=== PATIENT | male | born 2000 ===

== ENCOUNTER 2020-08-31 23:40 | Emergency (ER) | payer SELFPAY ==
[~2020-08-31] VITALS: Ht 170.2 cm; Wt 117.9 kg
[2020-08-31 23:55] VITALS: BP 149/64
[2020-09-01] MEDS ORDERED: GUAIFENESIN 300 MG/15 ML UDC ONE ×2 (01:26→02:25)
[2020-09-01] MEDS ORDERED: GUAIFENESIN 300 MG/15 ML UDC PO ONE ×2 (01:30→02:30)
== END 2020-09-01 02:43 | disposition home or self-care (01) ==
LOC: ER 23:57
DX: J06.9 Acute upper respiratory infection, unspecified (principal); R09.82 Postnasal drip; R07.89 Other chest pain
CPT/HCPCS: 71045-TC; 71046